=== PATIENT | female | born 1990 | race Caucasian/White ===

== ENCOUNTER 2017-11-08 17:29 | Emergency (ER) | payer MEDICAID ==
[2017-11-08] MEDS: KETOROLAC 15 MG INJ IV (18:18)
[2017-11-08] MEDS: ONDANSETRON 4 MG INJ IV (18:25)
[2017-11-08 18:26] LABS: URINE PH (Dip) POC 6.5 (5.0-8.5)
[2017-11-08 18:26] LABS: ADD MAN DIFF? NO; URINE BLOOD (Dip) POC Negative (NEGATIVE); URINE GLUCOSE (Dip) POC Negative (NEGATIVE); URINE KETONES (Dip) POC Negative (NEGATIVE); URINE LEUKOCYTE EST (Dip) POC 1+ (NEGATIVE); URINE NITRITE (Dip) POC Negative (NEGATIVE); URINE TOTAL PROTEIN POC Negative (NEGATIVE)
[2017-11-08] MEDS: SOD CHLORIDE 0.9% 1,000 ML IV (18:26)
[2017-11-08 18:27] LABS: BASOPHILS % 0.2 % (0.0-2.0); EOSINOPHILS # 0.1 10^3/ul (0.0-0.5); EOSINOPHILS % 1.6 % (0.0-7.0); HEMATOCRIT 39.1 % (37.0-47.0); HEMOGLOBIN 13.2 g/dl (12.0-16.0); LYMPHOCYTES # 2.7 10^3/ul (0.8-2.9); MEAN CORPUSCULAR HEMOGLOBIN 29.7 pg (29.0-33.0); MEAN CORPUSCULAR HGB CONC 33.8 g/dl (32.0-37.0); MEAN CORPUSCULAR VOLUME 87.9 fl (82.0-101.0); MEAN PLATELET VOLUME 9.5 fl (7.4-10.4); MONOCYTE # 0.6 10^3/ul (0.3-0.9); MONOCYTES % 7.6 % (0.0-11.0); NEUTROPHIL # 4.7 10^3/ul (1.6-7.5); NEUTROPHILS % 57.4 % (39.0-77.0); PLATELET COUNT 289 10^3/UL (140-415); RED BLOOD COUNT 4.45 10^6/ul (4.20-5.40); RED CELL DISTRIBUTION WIDTH 13.3 % (11.5-14.5)
[2017-11-08 18:27] LABS: WHITE BLOOD COUNT 8.2 10^3/ul (4.8-10.8)
[2017-11-08 18:49] LABS: ALANINE AMINOTRANSFERASE 31 IU/L (13-69); ALBUMIN 4.3 g/dl (3.3-4.9); ALBUMIN/GLOBULIN RATIO 1.04; ALKALINE PHOSPHATASE 75 IU/L (42-121); ANION GAP 15 (8-16); ASPARTATE AMINO TRANSFERASE 28 IU/L (15-46); BILIRUBIN,INDIRECT 0.3 mg/dl (0-1.1); BILIRUBIN,TOTAL 0.3 mg/dl (0.2-1.3); BLOOD UREA NITROGEN 7 mg/dl (7-20); CALCIUM 9.4 mg/dl (8.4-10.2); CARBON DIOXIDE 24 mmol/L (21-31); CHLORIDE 108 mmol/L (97-110); CREATININE 0.74 mg/dl (0.44-1.00); GLUCOSE 86 mg/dl (70-220); LIPASE 93 U/L (23-300); POTASSIUM 3.9 mmol/L (3.5-5.1); SODIUM 143 mmol/L (135-144); TOTAL PROTEIN 8.4 g/dl (6.1-8.1)
[2017-11-08] MEDS: PHENAZOPYRIDINE 100 MG TAB PO (19:08)
[2017-11-08] MEDS: NITROFURANTOIN (SR) 100 MG CAP PO (19:08)
[2017-11-08] MEDS: NAPROXEN 500 MG TAB PO ×2 (19:09→19:13)
== END 2017-11-08 21:30 | disposition left against medical advice (07) ==
LOC: FTE 17:29
DX: N30.00 Acute cystitis without hematuria (principal)
CPT/HCPCS: 36415; 80053; 81003; 81025; 83690; 85025; 96361; 96374; 99284-25